=== PATIENT | female | born 1970 | race Caucasian/White ===

== ENCOUNTER → 2017-09-12 07:40 | Outpatient (CLI) | payer BC, SELFPAY ==
--- NOTE | 2017-09-12 07:47 | RAD_ITS ---
STUDY: X-RAY - CERVICAL SPINE REASON FOR EXAM: Female, 47 years old. Chronic neck pain. TECHNIQUE: Lateral flexion and extension view(s) of the cervical spine were obtained. COMPARISON: None FINDINGS: Normal anterior atlantoaxial articulation. Normal odontoid process. There is straightening of the normal cervical lordosis. Anterior spondylosis and disc space narrowing at the C6-C7 level. No abnormal translation is seen on the flexion-extension views. Normal visualized intervertebral neuroforamina. The soft tissue structures are unremarkable. RAD/Cerv Spine 2 or 3 Views IMPRESSION: Straightening of the normal cervical lordosis. Spondylosis and disc space narrowing at the C6-C7 level. Electronically Signed: López Thompson MD at 9:25 EDT Tel [phone], Service support ,
== END ==
PROVIDERS: Family Provider Internal Medicine; PCP Internal Medicine; Visit Provider Internal Medicine
DX: M54.12 Radiculopathy, cervical region (principal)
CPT/HCPCS: 72040

== ENCOUNTER → 2017-09-20 07:20 | Outpatient (CLI) | payer BC, SELFPAY ==
--- NOTE | 2017-09-20 07:29 | MRI_ITS ---
STUDY: MRI CERVICAL SPINE WITHOUT CONTRAST REASON FOR EXAM: Female, 47 years old. Neck pain that radiates into both shoulders, H/A's. Symptoms x 8 weeks. TECHNIQUE: Standardized fat and water weighted pulse sequences were obtained in the sagittal and axial planes. COMPARISON: None FINDINGS: Normal foramen magnum and brainstem-cervical cord junction. Normal craniovertebral junction. Normal anterior atlantoaxial articulation. Normal odontoid process. There is straightening of the normal cervical lordosis. C2-3: Normal endplates. Normal disc height, signal and morphology. Normal central canal and intervertebral neural foramina. C3-4: Normal endplates. Normal disc height, signal and morphology. Normal central canal and intervertebral neural foramina. C4-5: There is minimal disc osteophyte complex without significant central canal stenosis. There is left uncovertebral arthropathy with mild left foraminal stenosis. There is no right foraminal stenosis. C5-6: There is minimal disc osteophyte complex with minimal central canal stenosis. There is uncovertebral arthropathy with mild bilateral foraminal stenosis. C6-7: There is moderate disc space narrowing and endplate spondylosis. There is a mild disc osteophyte complex with minimal central canal stenosis. Uncovertebral arthropathy with moderate left foraminal stenosis. C7-T1: Normal endplates. Normal disc height, signal and morphology. Normal central canal and intervertebral neural foramina. Normal cervical cord. Normal visualized soft tissue structures. MRI/Spine Cervical (Routine) IMPRESSION: C6/C7: Moderate left foraminal stenosis. Electronically Signed: Angel Devlin MD at 14:42 EDT Tel , Service support ,
== END ==
PROVIDERS: Family Provider Internal Medicine; PCP Internal Medicine; Visit Provider Internal Medicine
DX: M54.12 Radiculopathy, cervical region (principal)
CPT/HCPCS: 72141

== ENCOUNTER → 2018-08-11 12:26 | Outpatient (CLI) | payer BC, SELFPAY ==
--- NOTE | 2018-08-11 12:30 | RAD_ITS ---
STUDY: X-RAY - RIGHT FOOT CLINICAL: Female, 48 years old. Pain TECHNIQUE: 3 view(s) of the foot. COMPARISON: None. FINDINGS: Normal talus, calcaneus, and tarsal bones. Normal visualized subtalar, talonavicular, calcaneocuboid, tarsal and tarsometatarsal articulations. Normal metatarsi. There is degenerative arthrosis of the metatarsophalangeal joint of the hallux . Normal tibial and fibular sesamoid bones. Normal interphalangeal joint of the great toe. Normal phalanges of the great toe. Normal second through fifth metatarsophalangeal joints. Normal interphalangeal joints and phalanges of the lesser toes. The soft tissue structures are unremarkable. RAD/Foot min 3 Views IMPRESSION: First metatarsophalangeal osteoarthritis. Electronically Signed: Geronimo Downey MD at 14:48 EDT Tel , Service support ,
== END ==
LOC: HPRAD 12:28
PROVIDERS: Family Provider Internal Medicine; PCP Internal Medicine; Referring Provider Internal Medicine; Visit Provider Internal Medicine
DX: R52 Pain, unspecified (principal)
CPT/HCPCS: 73630

== ENCOUNTER → 2018-12-22 15:07 | Outpatient (CLI) | payer BC, SELFPAY ==
--- NOTE | 2018-12-22 15:10 | RAD_ITS ---
STUDY: X-RAY - RIGHT HAND, ATTENTION INDEX FINGER REASON FOR EXAM: Female, 48 years old. Pain and swelling TECHNIQUE: 3 view(s) of the finger were obtained. COMPARISON: None. FINDINGS: Normal metacarpal head. Normal metacarpophalangeal joint. Normal proximal phalanx. Normal middle phalanx. Normal distal phalanx. Normal proximal interphalangeal joint. Normal distal interphalangeal joint. RAD/Finger(s) Min 2 Views IMPRESSION: Normal x-ray examination of the finger. Electronically Signed: Jacky Lamas MD at 15:23 EDT , Service support ,
== END ==
PROVIDERS: Family Provider Internal Medicine; PCP Internal Medicine; Referring Provider Nurse Practitioner Gerontology; Visit Provider Nurse Practitioner Gerontology
DX: S69.91XA Unspecified injury of right wrist, hand and finger(s), initial encounter (principal)
CPT/HCPCS: 73140

== ENCOUNTER 2019-01-07 12:27 | Day surgery (SDC) | payer BC, SELFPAY ==
[2019-01-06 08:55] VITALS: BMI 32.2
[2019-01-07] VITALS (7 sets, daily range): BP systolic 136–154; BP diastolic 83–100; PULSE 70–88; RESP 14–18; TEMP 36.5–37.5; O2SAT 94–100; BMI 33.0
--- NOTE | 2019-01-07 15:19 | PCM.DC.ORTHO ---
Discharge Diet: No Restrictions - may remove dressing and apply bandaids pod4, follow up in 2 weeks, call with concerns Discharge Activity: May Not Drive May shower in (days): 1 Ice area for (Minutes): 20 - Every hour while awake. Weight Bearing Status: Weight bearing as tolerated Keep extremity elevated above heart level: Operative Extremity Call your doctor if your incision/area has: Continuous Slow Oozing, Sudden Increased Bleeding, Increased Pain/ Swelling, Increased Redness, Foul Smelling Discharge Call your doctor if you observe: Fever of 101 or Higher, Coldness, Increased Pain, Numbness or Tingling, Change in Color, Calf discomfort Allergies/Adverse Reactions: Allergies erythromycin base Allergy (Intermediate, Verified 01/07/19 12:39) Swelling Penicillins Allergy (Intermediate, Verified 01/07/19 12:39) Swelling Medications to take at Discharge levothyroxine 50 mcg tablet 50 mcg PO DAILY #39 tab 01/06/19 omeprazole 20 mg capsule,delayed release 20 mg PO DAILY #30 cap 01/06/19 Hydrocodone Bitart/Apap 5-325 [[place] 5MG-325MG] 1 - 2 tablet PO Q6H PRN PRN 5 Days #20 tablet 01/07/19 The following prescriptions were given: Hydrocodone Bitart/Apap 5-325 [[place] 5MG-325MG] 1 - 2 tablet PO Q6H PRN PRN 5 Days #20 tablet PRN Reason: Pain Transmission Status: Sent to [facility] Primary Care Physician: Luna Stearns DO [Primary Care Provider] - Test Results: Test results from this visit will be discussed in further detail at your follow-up appointment, if applicable. Please Follow Up With: Sol Su DO - [phone]
--- NOTE | 2019-01-07 15:20 | OP.PCM_ITS ---
Report of Operation Date of Procedure: 01/07/19 Pre-Operative Diagnosis: right index bony mallet finger Post-Operative Diagnosis: same Surgery/Procedure Performed:: right dip close reduction percutaneous pinning Type of Anesthesia:: General Anesthesiologist: Jackson Peraza Estimated Blood Loss (mL): none Fluids Replaced: 400cc Description of Procedure: Preop note Next Patient is a 48-year-old female who was playing catch with her family and had a stove injury to her right index finger. Patient attempted to splint it and noted it was increasingly flexed and painful. She saw her primary care doctor who was referred her to Ortho and patient was seen yesterday. She was diagnosed with a bony mallet. 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 Risk benefits alternatives were discussed with patient. Risks include but not limited to blood loss, blood clot, infection, neurovascular, failure procedure, loss of life and loss of limb. Patient is worried like proceed with right index finger closed reduction percutaneous pinning. Operative note Patient seen and examined preop holding area. Right index finger was marked.. Patient brought to the operating placed supine on the operating table. Sign, anesthesia, antibiotics were administered. The right hand was prepped and draped usual sterile fashion. Fluoroscopy to ascertain the level of the bony mallet and her K wire placement. Timeout was performed. We then used a 5 4 K wire placed at [facility] in the through the DIP going retrograde across the DIP into the proximal phalanx. The sliver of bone from the bony mallet is slightly displaced but we are able to further reduce and it was less than 15% of the distal phalanx. Good reduction of our joint she was placed in hyperex tension the pin was buried as patient elected to proceed with a buried pin and will remove the K wire in the OR in 6 weeks time. Sterile dressings were applied patient tolerated procedure well no complication transferred recovery room in stable condition. Please note the multiple images in both AP and lateral fluoroscopy images to ascertain the reduction of the DIP joint were taken and maintained. Operative postop note Maintain dressing Follow-up in 2 weeks Patient is going to wear the splint when she is working and this was told to cover up the in the pins placement site as it may be tender if she gets bumped. Patient is aware. Hospital pharmacy has prescriptions as This note was generated with [employer] dictation software. It may contain incorrect words, spelling, and punctuation that were not noted in checking the note before signing.
[2019-01-07] MEDS: Cefazolin 2 GM in 0.9% Normal Saline 100 ML IV (15:25)
--- NOTE | 2019-01-07 15:30 | RAD_ITS ---
STUDY: X-RAY - RIGHT HAND, ATTENTION INDEX FINGER REASON FOR EXAM: Female, 48 years old. Fluoroscopic guided open reduction internal fixation TECHNIQUE: 3 view(s) of the finger were obtained. COMPARISON: December 22, 2018 FINDINGS: 4 views were obtained utilizing fluoroscopic guidance during surgical pinning of fracture of the base of the distal phalanx of the index finger. Fracture fragments are in anatomic alignment and position. 22 seconds of fluoroscopic time were utilized during the study RAD/Finger(s) Min 2 Views IMPRESSION: Fluoroscopic guided pinning of the fracture of the distal phalanx of the index finger Electronically Signed: Praveen Nesbitt MD at 16:17 EDT , Service support ,
--- NOTE | 2019-01-07 15:53 | PCM.HP.BLA ---
History and Physical I have re-examined the patient. There are no clinical changes since date of exam. Intake Vital Signs 01/06/19 Height 5 ft 01/06/19 Weight: 165 lb 01/06/19 Body Mass Index (BMI) 32.2 Intake Visit Reasons: Right Hand Is patient in pain?: Yes Pain scale (1-10): 4 Allergies erythromycin base Allergy (Intermediate, Verified 01/06/19 11:55) Swelling Penicillins Allergy (Intermediate, Verified 01/06/19 11:55) Swelling Medications levothyroxine 50 mcg tablet 50 mcg PO DAILY #39 tab 01/06/19 [History Confirmed 01/06/19] omeprazole 20 mg capsule,delayed release 20 mg PO DAILY #30 cap 01/06/19 [History Confirmed 01/06/19] PFSH Social History (Updated 01/06/19 @ 14:33 by Sol Su DO) Smoking Status: Current every day smoker HPI Right Hand: Surgical H&P: Yes Details: Parts of this documentation were recorded by a scribe, this documentation accurately reflects the service provided and the decisions made by me, Sol Su DO 01/06/19 0852. SHEYLA PARK is a 48 year old F NEW patient referred by Dr Stearns here today for right index finger injury on 12/13/18 when she was playing catch with her son. THe football hit the end of the ring finger and she had immediate pain, she has a mallet deformity today and has had no treatment, she does have an xray that Dr Stearns ordered. She can not extend the distal phalanx. Denies numbness, tingling or other associated symptoms. There is some mild redness noted at the dip joint. ROS Const Reports system reviewed and no additional complaints, except as docu Eyes Reports system reviewed and no additional complaints, except as docu ENT Reports system reviewed and no additional complaints, except as docu Card Reports system reviewed and no additional complaints, except as docu Resp Reports system reviewed and no additional complaints, except as docu GI Reports system reviewed and no additional complaints, except as docu Musc Reports as per HPI, Reports joint pain, Reports deformity Skin/Breast Reports system reviewed and no additional complaints, except as docu Neuro Yes system reviewed and no additional complaints, except as docu Psych Reports system reviewed and no additional complaints, except as docu Endo Reports system reviewed and no additional complaints, except as docu Assessment & Plan Problems 1. 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 X-rays were reviewed. There is vincenzo mallet finger noted. Educated on the anatomy of the finger and explained that she has a small fracture with mallet finger. Her treatment options are splinting without any removal for 6wks or buried pinning. Explained that as she is in a subacute stage of injury the pinning would need to be done tomorrow. Reviewed the functionality with a flexed finger and that there is no guarantee of surgery making the deformity change. Reviewed the pre-operative plans with the patient. Risks and benefits of the procedure were fully explained, including but not limited to infection, neurovascular injury, continued pain, arthritis, stiffness, need for further surgery, re-injury, DVT, PE, general risks of anesthesia, and loss of limb or life. The patient understands all the risks and does wish to proceed with written consent. Follow up two weeks post op or sooner if pain, swelling, numbness or associated symptoms, or concerns develop. All questions answered. Patient in agreement of plan. 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
[2019-01-07] MEDS: HYDROcodone Bitartrate/Apap 5/325 Tablet PO (17:46)
== END 2019-01-07 18:05 | disposition home or self-care (01) ==
LOC: SDC 12:28 → AC 12:30
PROVIDERS: Family Provider Internal Medicine; PCP Internal Medicine; Referring Provider Orthopaedic Surgery; Visit Provider Orthopaedic Surgery
PROC: (CPT 26776; principal; 2019-01-07 13:00)
DX: M20.011 Mallet finger of right finger(s) (principal); F17.200 Nicotine dependence, unspecified, uncomplicated
CPT/HCPCS: 26776; 73140; 76000; J7120; J2405

== ENCOUNTER 2019-03-04 13:18 | Day surgery (SDC) | payer BC, SELFPAY ==
[2019-01-23 08:21] VITALS: BMI 33.0
[2019-02-13 14:48] VITALS: BMI 33.0
[2019-03-04 13:39] VITALS: BP 128/88; PULSE 88; RESP 16; TEMP 37.1; O2SAT 100; BMI 31.7
[2019-03-04] MEDS: Cefazolin 2 GM in 0.9% Normal Saline 100 ML IV (13:41)
[2019-03-04] MEDS: Lactated Ringers 1,000 ML 100 ML IV (13:49)
--- NOTE | 2019-03-04 15:26 | PCM.HP.BLA ---
History and Physical I have re-examined the patient. There are no clinical changes since date of exam. Intake Vital Signs 02/13/19 Body Mass Index (BMI) 33.0 Intake Visit Reasons: PLAN FOR REMOVAL OF HARDWARE Allergies erythromycin base Allergy (Intermediate, Verified 01/07/19 12:39) Swelling Penicillins Allergy (Intermediate, Verified 01/07/19 12:39) Swelling PFSH Social History (Updated 02/13/19 @ 16:12 by ISABELL Diaz) Smoking Status: Current every day smoker HPI PLAN FOR REMOVAL OF HARDWARE: Surgical H&P: Yes Details: Parts of this documentation were recorded by a scribe, this documentation accurately reflects the service provided and the decisions made by Ko crawley PA 02/13/19 [id number]. SHEYLA PARK is a 48 year old F here today for 01/07/19 perc pinning right distal phalanx. She has good extension today. Denies numbness, tingling or other associated symptoms. She does get some discoloration at time. Patient states she has had nt any changes since her last visit and she is here today to sign consent for pin removal. DOS set for 03/04/19. ROS Const Reports system reviewed and no additional complaints, except as docu Eyes Reports system reviewed and no additional complaints, except as docu ENT Reports system reviewed and no additional complaints, except as docu Card Reports system reviewed and no additional complaints, except as docu Resp Reports system reviewed and no additional complaints, except as docu GI Reports system reviewed and no additional complaints, except as docu Musc Reports system reviewed and no additional complaints, except as docu, Reports as per HPI Skin/Breast Reports system reviewed and no additional complaints, except as docu Neuro Yes system reviewed and no additional complaints, except as docu Psych Reports system reviewed and no additional complaints, except as docu Endo Reports system reviewed and no additional complaints, except as docu Zoltan/Lymph Reports system reviewed and no additional complaints, except as docu Aller/Immun Reports system reviewed and no additional complaints, except as docu Ortho Exam Right Wrist/Hand Skin/Wound: No Swelling, No Ecchymosis Right Wrist: Yes ROM-Extension 0-60 and ROM-Flexion 0-80 Sensation: Radial: I, Ulnar: I, Median: I Left Wrist/Hand Skin/Wound: No Swelling, No Ecchymosis Assessment & Plan Problems 1. 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 Orthopedic aftercare Z47.89 Plan Patient is here today to sing surgery consent for pin removal of right dip of her right index finger. She has no concerns or complaints at this time and is ready to have the pin removed. Risks and benefits were discussed, all questions were answered, and consent was signed in office today. Antibacterial soap was given to be used the night before and the morning of her surgery. Patient will be contacted by surgery dept as well as anasthesia for pre-anasthesia testing. Follow up 2 weeks post op or sooner if pain, swelling, numbness or associated symptoms, or concerns develop. All questions answered. Patient in agreement of plan. Coding Level of Care Code Global Post Op Diagnoses Mallet deformity of right index finger M20.011 Orthopedic aftercare Z47.89
--- NOTE | 2019-03-04 15:29 | DCINST_ITS ---
Discharge Diet: No Restrictions - remove splint tomorrow. splint at night only for next 6 weeks, call with concerns, follow up in 2 weeks, do not submerge finger until incision healed Discharge Activity: May Not Drive May shower in (days): 1 Ice area for (Minutes): 20 - Every hour while awake. Weight Bearing Status: Weight bearing as tolerated Keep extremity elevated above heart level: Operative Extremity Call your doctor if your incision/area has: Continuous Slow Oozing, Sudden Increased Bleeding, Increased Pain/ Swelling, Increased Redness, Foul Smelling Discharge Call your doctor if you observe: Fever of 101 or Higher, Coldness, Increased Pain, Numbness or Tingling, Change in Color, Calf discomfort Allergies/Adverse Reactions: Allergies erythromycin base Allergy (Intermediate, Verified 03/04/19 13:30) Swelling Penicillins Allergy (Intermediate, Verified 03/04/19 13:30) Swelling Medications to take at Discharge levothyroxine 50 mcg tablet 50 mcg PO DAILY #39 tab 01/06/19 omeprazole 20 mg capsule,delayed release 20 mg PO DAILY #30 cap 01/06/19 Primary Care Physician: Luna Stearns DO [Primary Care Provider] - Test Results: Test results from this visit will be discussed in further detail at your follow- up appointment, if applicable. Please Follow Up With: Sol Su DO - [phone]
--- NOTE | 2019-03-04 15:29 | PCM.OPRPT ---
Report of Operation Date of Procedure: 03/04/19 Pre-Operative Diagnosis: right index finger dip pin Post-Operative Diagnosis: same Surgery/Procedure Performed:: jose alejandro right distal phalanx/middle pha Type of Anesthesia:: Local MAC Anesthesiologist: Jackson Peraza Fluids Replaced: 300 Description of Procedure: Preop note Patient is a 48-year-old female who had a chronic DIP bony mallet that was pin was placed 8 weeks ago. Patient pin was buried and is here today for removal of pin. Risk benefits alternatives were discussed with patient. Risks include but not limited to blood loss, blood clot, infection, neurovascular, failure procedure, loss of life and loss of limb patient is very like proceed with removal of hardware right index finger. Operative note Patient seen and examined preop preoperative holding area. Right hand was marked. Patient brought to the operating room placed supine on the operating table. Sign, anesthesia, antibiotics were warp picker. I then placed a local block to the right index finger. We then were able to palpate the the of the pin under sterile standard sterile sterile technique the pin was removed we then were able to visualize the tip of the pin to renew that he has had it out in its entirety. Sterile dressings were applied. Please note that we did place a turnicot for about 2 minutes during the case. Patient tired procedure well no comp occasions [facility] recovery room in stable condition. Postoperative note May use hand as tolerated Splint sent home to wear at night the next 6 weeks May remove dressing in 1 day Follow-up in 2 weeks Dragon disclaimer This note was generated with [employer] dictation software. It may contain incorrect words, spelling, and punctuation that were not noted in checking the note before signing.
[2019-03-04] MEDS: Bupivacaine Mpf 0.5% 30 ML VIAL (15:41)
[2019-03-04] MEDS: Mupirocin Ointment 22gm Tube 1 APPLIC (15:45)
[2019-03-04 15:57] VITALS: BP 109/76; BP 128/88; PULSE 86; RESP 16; TEMP 36.8; O2SAT 96
[2019-03-04 16:02] VITALS: BP 111/72; BP 128/88; PULSE 84; RESP 16; O2SAT 95
[2019-03-04 16:07] VITALS: BP 109/78; BP 128/88; PULSE 84; RESP 16; O2SAT 96
[2019-03-04 16:12] VITALS: BP 117/79; BP 128/88; PULSE 84; RESP 16; TEMP 36.4; O2SAT 97
[2019-03-04 16:32] VITALS: BP 128/88
== END 2019-03-04 16:42 | disposition home or self-care (01) ==
LOC: SDC 13:19 → AC 13:20
PROVIDERS: Family Provider Internal Medicine; PCP Internal Medicine; Referring Provider Orthopaedic Surgery; Visit Provider Orthopaedic Surgery
PROC: (CPT 20680; principal; 2019-03-04 13:35)
DX: M20.011 Mallet finger of right finger(s) (principal); Z47.89 Encounter for other orthopedic aftercare; Z88.0 Allergy status to penicillin; Z88.1 Allergy status to other antibiotic agents; F17.200 Nicotine dependence, unspecified, uncomplicated
CPT/HCPCS: 20680; J7120; J2405

== ENCOUNTER → 2019-03-17 08:13 | Outpatient (CLI) | payer BC, SELFPAY ==
[2019-03-17 08:05] VITALS: BMI 31.7
--- NOTE | 2019-03-17 08:14 | RAD_ITS ---
STUDY: X-RAY - RIGHT HAND, ATTENTION INDEX FINGER REASON FOR EXAM: Right index finger hardware removal. TECHNIQUE: 3 view(s) of the finger were obtained. COMPARISON: Radiographs 12/22/2018 and intraoperative images 01/07/2019. FINDINGS: Normal metacarpal head. Normal metacarpophalangeal joint. Normal proximal phalanx. There is osteopenia of the distal and middle phalanges. There is a fracture at the dorsal base of the distal phalanx without osseous bridging. Normal proximal interphalangeal joint. There is joint space narrowing of the distal interphalangeal joint similar to the prior study. There is soft tissue swelling. RAD/Finger(s) Min 2 Views IMPRESSION: Fracture at the dorsal base of the distal phalanx without osseous bridging. Arthrosis of the distal interphalangeal joint. Electronically Signed: Levi Croft MD at 10:38 EDT Tel , Service support ,
== END ==
LOC: HPRAD 08:14
PROVIDERS: Family Provider Internal Medicine; PCP Internal Medicine; Referring Provider Orthopaedic Surgery; Visit Provider Orthopaedic Surgery
DX: M20.011 Mallet finger of right finger(s) (principal); Z47.89 Encounter for other orthopedic aftercare
CPT/HCPCS: 73140

== ENCOUNTER → 2019-04-16 08:34 | Outpatient (CLI) | payer BC, SELFPAY ==
[2019-04-16 08:16] VITALS: BMI 31.7
--- NOTE | 2019-04-16 08:35 | RAD_ITS ---
STUDY: X-RAY - RIGHT HAND, ATTENTION SECOND FINGER REASON FOR EXAM: Female, 48 years old. Postoperative. TECHNIQUE: 3 view(s) of the finger were obtained. COMPARISON: 03/17/2019. FINDINGS: Normal metacarpal head. Normal metacarpophalangeal joint. Normal proximal phalanx. Normal middle phalanx. Normal distal phalanx. Normal proximal interphalangeal joint. There is narrowing of the distal interphalangeal joints with questionable subtle erosive changes. There is a well-corticated bony fragment along the dorsum of the distal interphalangeal joint consistent with old avulsion injury, stable. No acute fracture seen. No focal soft tissue swelling. RAD/Finger(s) Min 2 Views IMPRESSION: Questionable erosive osteoarthritis involving the distal interphalangeal joint with sequela of old avulsion injury along the dorsum of the DIP joint. No acute fracture or subluxation seen. Electronically Signed: Jody Henry MD at 2:41 EST , Service support ,
== END ==
PROVIDERS: Family Provider Internal Medicine; PCP Internal Medicine; Referring Provider Physician Assistant; Visit Provider Physician Assistant
DX: Z47.89 Encounter for other orthopedic aftercare (principal)
CPT/HCPCS: 73140

== ENCOUNTER → 2020-09-14 08:01 | Outpatient (CLI) | payer BC, SELFPAY ==
[2019-06-08 08:18] VITALS: BMI 31.7
--- NOTE | 2020-09-14 08:09 | US_ITS ---
STUDY: ABDOMINAL ULTRASOUND - RIGHT UPPER QUADRANT REASON FOR VISIT: Female, 50 years old abdominal pain. Chest pain for 2 weeks. TECHNIQUE: Ultrasound evaluation of the right upper quadrant was performed with real-time and static mays-scale imaging. TECHNICAL QUALITY: Adequate. COMPARISON: None. FINDINGS: Liver: The liver measures 14.2 cm. There is normal echogenicity of the liver. The bile ducts are within normal limits. There is hepatic color flow. The direction of portal flow is hepatopetal. There is no demonstrated mass lesion. Gallbladder: Normal distended gallbladder. The gallbladder wall measures 2.9 mm. There is a negative sonographic Irvin''s sign. There is no pericholecystic fluid. There are no gallstones. Common Bile Duct (C.B.D.): The common bile duct measures 2.7 mm. Pancreas: Normal size of the head, body and tail of the pancreas. There is normal echogenicity of the pancreas. There is no demonstrated pancreatic mass or cyst. Right Kidney: Normal size of the right kidney. The right kidney measures 9.6 cm. Normal renal cortex. The right cortex measures 1.1 cm. There is no demonstrated renal mass or cyst. There is no right hydronephrosis. US/Gallbladder IMPRESSION: Normal right upper quadrant ultrasound examination. Electronically Signed: Deangelo Hall DO at 22:40 EDT Tel [phone], Service support ,
--- NOTE | 2020-09-14 08:34 | ECHOD_ITS ---
Reason For Study: CHEST PAIN Procedure This was a 2D Doppler, Color Flow transthoracic echocardiogram. The exam was of adequate technical quality. Exam performed in department. Left Ventricle Normal LV size. Left ventricular systolic function is normal. The estimated ejection fraction is 65 %. No evidence for diastolic dysfunction. No regional wall motion abnormalities noted. Right Ventricle Normal RV size. Normal systolic function. Atria The left atrium is mildly enlarged. Normal right atrium. No doppler evidence for ASD. Bubble contrast study negative for right to left interatrial shunt. Mitral Valve There is no mitral annular calcification. Normal mitral valve. Mild (1+) mitral valve insufficiency. Tricuspid Valve Normal tricuspid valve. Mild to moderate (1-2+) tricuspid valve insufficiency. Right ventricular systolic pressure estimated to be 28 mmHg. Aortic Valve Trisinus/trileaflet aortic valve. Mild focal aortic valve calcification. Pulmonic Valve The pulmonic valve is not well visualized. Trivial pulmonic valve insufficiency. Great Vessels Normal sized aortic root. Pericardium/Pleural Trivial pericardial effusion. There are no echocardiographic indications of cardiac tamponade. Medication 22 gauge I.V. with prn adaptor inserted into left arm. Performed a rapid injection of agitated mix of 9 cc saline and 1cc air to assess for atrial septal defect. MMode/2D Measurements & Calculations LVIDd: 4.8 cm IVSd: 0.78 cm Ao root diam: 2.7 cm LVIDs: 3.4 cm LVPWd: 0.95 cm RVDd: 2.8 cm FS: 29.8 % LAV(MOD-bp): 39.7 ml LVAd ap4: 21.3 cm2 SV(MOD-sp4): 36.6 ml LAV(MOD-bp) Indexed: 23.7 ml/m2 EDV(MOD-sp4): 57.6 ml LAV(MOD-sp2): 39.0 ml EDV(sp4-el): 57.9 ml LAV(MOD-sp4): 35.1 ml LVAs ap4: 11.6 cm2 ESV(MOD-sp4): 20.9 ml ESV(sp4-el): 19.9 ml EF(MOD-sp4): 63.6 % EF(sp4-el): 65.6 % SV(sp4-el): 38.0 ml LA A4 area: 14.8 cm2 LA dimension(2D): 3.5 cm RA A4 area: 11.7 cm2 Time Measurements MV dec time: 0.20 sec Doppler Measurements & Calculations MV E max usama: 83.7 cm/sec Lat Peak E' Usama: 8.9 cm/sec Med Peak E' Usama: 9.4 cm/sec MV A max usama: 74.0 cm/sec E/E' lat: 9.4 E/E' med: 8.9 MV E/A: 1.1 Ao V2 max: 131.6 cm/sec LV V1 max: 100.5 cm/sec PA V2 max: 88.1 cm/sec Ao max P.9 mmHg LV V1 max P.0 mmHg TR max usama: 247.4 cm/sec TR max P.5 mmHg ECHO/Echo Complete Interpretation Summary Left ventricular systolic function is normal. The estimated ejection fraction is 65 %. The left atrium is mildly enlarged. Mild (1+) mitral valve insufficiency. Mild to moderate (1-2+) tricuspid valve insufficiency. Mild focal aortic valve calcification. Trivial pulmonic valve insufficiency. Trivial pericardial effusion. There are no echocardiographic indications of cardiac tamponade. Right ventricular systolic pressure estimated to be 28 mmHg. No evidence for diastolic dysfunction. Bubble contrast study negative for right to left interatrial shunt. Ordering Physician: Ana Dempsey Referring Physician: RADHA KLINE Performed By: Angelia Humphrey RDCS
== END ==
PROVIDERS: PCP Internal Medicine; Referring Provider Nurse Practitioner; Visit Provider Nurse Practitioner
DX: R07.9 Chest pain, unspecified (principal)
CPT/HCPCS: 76705; 93225; 93226; 93306; A4216

== ENCOUNTER → 2020-12-13 06:40 | Outpatient (CLI) | payer BC, SELFPAY ==
[2020-11-03 13:33] VITALS: BMI 30.3
--- NOTE | 2020-12-13 09:36 | STRESSREP ---
Stress Test Report Date: 12-13-2020 Procedure: Exercise tolerance test/imaging study Indications: Chest pain; SVT Consent: Per the patient Procedure: The patient exercised on a Jd protocol for 9 minutes and 16 seconds completing Stage III and 16 seconds of Stage IV achieving a peak heart rate of 164 bpm (96% predicted maximal heart rate) with a peak blood pressure 174/82 mmHg and a peak MET capacity of 10 METs. The baseline ECG demonstrated normal sinus rhythm. The peak exercise ECG demonstrated no obvious ECG changes. There was an isolated PVC during recovery. The functional capacity was considered good. There was no complaint of chest discomfort during exercise or recovery. The examination was discontinued secondary to dyspnea. Impression: 1. Technically adequate (percent predicted maximal heart rate greater than 85%) exercise tolerance test 2. Peak exercise ECG with no obvious ECG change 3. There was an isolated PVC during recovery 4. Nuclear images pending Myocardial perfusion imaging study: Technique: The patient was injected with 11.1 mCi of technetium 99m Cardiolite and subsequently rest SPECT Cardiolite nuclear imaging was obtained in the horizontal long, vertical long, and short axis views. The patient exercised on a Jd protocol for 9 minutes and 16 seconds completing Stage III and 16 seconds of Stage IV achieving a peak heart rate of 164 bpm (96% predicted maximal heart rate) with a peak blood pressure 174/82 mmHg and a peak MET capacity of 10 METs. The patient was injected with 33.0 mCi of technetium 99m Cardiolite and subsequently stress SPECT Cardiolite nuclear imaging was obtained in the horizontal long, vertical long, and short axis views. A gated Cardiolite study at peak stress was obtained. Interpretation: Rest and stress SPECT Cardiolite nuclear imaging status post realignment, normalization, and attenuation correction, demonstrates the appearance of relative uniform tracer uptake and myocardial perfusion appearing within normal limits. There are no obvious myocardial perfusion deficits on the resting or stress polar map images. There is end systolic thickening and brightening. The gated Cardiolite study demonstrates myocardial thickening and inward wall motion. The reported LVEF is 81%. Impression: 1. Rest and stress SPECT Cardiolite nuclear imaging demonstrate relative uniform tracer uptake and myocardial perfusion appearing within normal limits. 2. The gated Cardiolite study reports an LVEF of 81%. This note was generated with [employer] software. It may contain incorrect words, spelling, and punctuation that were not noted in checking the note before signing.
== END ==
LOC: CVS 06:41
PROVIDERS: PCP Internal Medicine; Referring Provider Internal Medicine Cardiovascular Disease; Visit Provider Internal Medicine Cardiovascular Disease
DX: R07.2 Precordial pain (principal); Z86.79 Personal history of other diseases of the circulatory system
CPT/HCPCS: 78452; 93017; A9500; A4216

== ENCOUNTER 2023-01-24 09:05 | Emergency (ER) | payer BC, SELFPAY ==
[2023-01-24 09:06] VITALS: BP 168/92; PULSE 86; RESP 16; TEMP 36.6; O2SAT 99; BMI 28.8
--- NOTE | 2023-01-24 09:43 | CT_ITS ---
STUDY: CT ABDOMEN AND PELVIS WITH CONTRAST - URINARY TRACT REASON FOR EXAM: Female, 52 years old. Vomiting, right sided abd pain RADIATION DOSAGE (If Supplied By Facility): CTDIvol = ( 12.59 ) mGy, DLP = ( 474.73 ) mGycm TECHNIQUE: IV 100mL Isovue-300 was administered. Transaxial images were obtained from the dome of the diaphragm to the symphysis pubis in the arterial, nephrographic and excretory phases. Multiplanar coronal and sagittal images were reformatted. Individualized Dose Optimization Techniques Were Used For This CT. COMPARISON: Prior study dated: Ultrasound dated September 14, 2020 FINDINGS: The visualized lung bases are unremarkable. The visualized portions of the heart are within normal limits. There is a too small to characterize low-attenuation focus within the right hepatic lobe which may reflect a cyst or hemangioma. There is a low-attenuation focus within the left hepatic lobe adjacent to the falciform ligament suggestive of focal fat. Normal gallbladder and extrahepatic biliary system. Normal spleen. Normal pancreas. Normal bilateral adrenal glands. Normal visualized stomach. There is a round calcified appearing 2.7 mm focus within the distal ileum (image 81 series 2). There are multiple colonic diverticula consistent with diverticulosis. The appendix is visualized and appears normal. Normal abdominal aorta. No retroperitoneal adenopathy. There are few peripheral calcifications of the common iliac arteries. Normal right kidney. Normal left kidney. The bladder is incompletely distended. There is minimal free fluid within the pelvis. There is a small umbilical hernia containing fat. There are diffuse degenerative changes of the visualized lumbar spine. CT/Abdomen/Pelvis W IV Cont ONLY IMPRESSION: No acute intra-abdominal process. Atherosclerosis. Colonic diverticulosis. Indeterminate 2.7 mm calcific-appearing round focus within the distal ileum may be secondary to ingested food containing calcifications. Electronically Signed: Katrina Mcfadden MD at 10:56 EDT ,
[2023-01-24] MEDS: 0.9% Normal Saline 1,000 ML 1000 ML IV (09:54)
[2023-01-24] MEDS: Ondansetron 4 MG/2 ML Vial IV (09:54)
[2023-01-24] MEDS: Morphine 4 MG/ML Syringe IV (09:54)
--- NOTE | 2023-01-24 10:07 | ED.VIS.GI ---
HPI HPI - GI History of Present Illness Chief Complaint: Abd Pain Informant: patient Narrative Narrative: Patient is a 52-year-old female with history of GERD, hypothyroid and SVT presenting abdominal pain, nausea and vomiting. She states she had abdominal pain that woke her up around 2 AM. She points to her diffuse upper abdominal region. She states it radiates to her back. She states it became more cramping in nature and then she started having nausea and vomiting. She tried to take Zofran but threw that up. She was able to fall back asleep for couple hours and then woke up again with the same pain and more vomiting. She notes she did have a normal bowel movement this morning. Denies any blood in her vomit or her stool. Denies any sick contacts. Notes that she had pizza and chicken wings for dinner last night around 7 PM. Is not had anything to eat since. Denies any fever or chills. Occasionally drinks alcohol does not had any in the past few days. Denies any chest pain, shortness of breath or difficulty breathing. Denies any urinary symptoms. No other complaints at this time. Surgical history includes tubal ligation and hysterectomy. [facility] Medical History Chest pain GERD (gastroesophageal reflux disease) History of supraventricular tachycardia Home Medications omeprazole 20 mg capsule,delayed release 20 mg PO DAILY #30 caps 01/06/19 [History Last Taken 03/04/19 08:00] ascorbic acid 7.5 mg-vit E 7.5 unit-biotin 1,250 mcg chewable tablet 2 tab PO DAILY 11/01/20 [History Last Taken Unknown] cholecalciferol (vitamin D3) 250 mcg (10,000 unit) tablet 250 mcg PO QWEEK 11/01/20 [History Last Taken Unknown] levothyroxine 50 mcg tablet 50 mcg PO .COMPLEX #39 tabs 11/01/20 [History Last Taken Unknown] lorazepam 0.5 mg tablet 0.5 mg PO DAILY PRN 11/01/20 [History Last Taken Unknown] mometasone 50 mcg/actuation nasal spray (Nasonex) 2 spray intranasal DAILY 11/01/20 [History Last Taken Unknown] cholecalciferol (vitamin D3) 50 mcg (2,000 unit) capsule 50 mcg PO QWEEK 11/03/20 [History Last Taken Unknown] dicyclomine 10 mg capsule 10 mg PO TID PRN abdominal pain #20 caps 01/24/23 [Rx Last Taken Unknown] levothyroxine 25 mcg tablet (Levo-T) 25 mcg PO DAILY 01/24/23 [History Last Taken Unknown] metoclopramide HCl 5 mg tablet (Reglan) 5 mg PO Q6H PRN nausea and vomiting #20 tabs 01/24/23 [Rx Last Taken Unknown] Allergy/AdvReac Type Severity Reaction Status Date / Time erythromycin base Allergy Intermediate Swelling Verified 01/24/23 09:06 Penicillins Allergy Intermediate Swelling Verified 01/24/23 09:06 Family History Mother Myocardial infarction, Onset Age: 40 Congestive heart failure Father Cancer Colon Hypertension Surgical History History of left heart catheterization (LHC) (~05/10/09) History of total hysterectomy Social History Smoking Status: Current every day smoker tobacco type: cigarettes alcohol intake: current details: occasional substance use type: does not use caffeine: No ROS ROS ED Constitutional Constitutional ED: Denies chills or fever(s) Cardiovascular Cardiovascular: Denies chest pain Respiratory/Chest Respiratory/Chest: Denies cough Gastrointestinal Gastrointestinal: Reports abdominal pain, nausea and vomiting; Denies constipation, diarrhea or melena Genitourinary Genitourinary ED: Denies dysuria or hematuria Musculoskeletal Musculoskeletal: Denies arthralgias, back pain or myalgias Integumentary Denies rash Neurologic Neurologic: Denies headache(s) EXAM Physical Exam Const Vital Signs: 01/24/23 09:06 Temperature 97.9 F Temperature Source Temporal Pulse Rate 86 Respiratory Rate 16 Blood Pressure 168/92 H Blood Pressure Mean 117 Pulse Ox 99 Oxygen Delivery Method Room Air Positive well nourished and well developed Constitutional Narrative: Uncomfortable appearing General Appearance ED: well developed; Negative for pallor HEENT Reports moist mucous membranes normocephalic and atraumatic Eyes General Eye ED: Negative for scleral icterus Neck supple Resp normal respiratory effort and clear to auscultation bilaterally Cardio regular rate, regular rhythm and no murmurs GI GI Narrative: Negative Irvin sign however patient is mildly tender throughout the abdomen with increased tenderness in the right lower quadrant suprapubic region. There is pain at McBurney's point. Nondistended. Auscultation: hypoactive bowel sounds Palpation: soft and tender RLQ, McBurney's point and suprapubic; Negative for guarding or rigid Back/Spine no CVA tenderness Neuro moves all extremities Sensorium / Orientation: alert Motor Exam: Negative for general weakness Psych mental status grossly normal and thought process normal Skin no wounds General Skin Exam: Negative for jaundice or pallor MDM MDM MDM Narrative Medical decision making narrative: Patient is evaluated sudden onset of abdominal pain, nausea and vomiting. Differential includes pancreatitis, cholecystitis, appendicitis and renal colic. Vital signs are significant only for mild hypertension. Patient is ordered IV Zofran, morphine and IV fluids. Will check labs, CT of the abdomen pelvis with IV contrast and reevaluate. Patient had improvement of symptoms but her cramping sensation comes back as well as her nausea. Blood work including CBC, CMP and lipase are largely normal. Urinalysis still pending at this point. CT of the abdomen and pelvis does not show any acute process however there is an indeterminate 2.7 mm calcified appearing round focus in the distal ileum which may be secondary to ingested food containing calcifications. Patient does not think she is taking any antacids and cannot recall what she could have eaten that would cause this. Is ordered Toradol and Reglan for further symptom control and will check a lactate. Abdominal exam is still benign and she is just now diffuse tenderness. Will trial Bentyl once her nausea is improved. Patient reevaluated and has significant improvement of symptoms. Her lactate is normal. Is tolerating p.o. Urinalysis not consistent with infection or other acute abnormality. While the cause of her symptoms is not clear at this time I do not think she has an acute surgical abnormality and can be discharged home. Is possible she has some type of gastroenteritis/food poisoning however that is little bit unusual since the patient does not have any sick contacts. This could be viral in nature as well. Lab Data Attestation: I reviewed the patient's lab results. Labs: Laboratory Results - last 24 hr 01/24/23 01/24/23 01/24/23 09:58 10:30 11:35 WBC 7.2 RBC 4.15 L Hgb 13.5 Hct 40.8 MCV 98.3 MCH 32.5 H MCHC 33.1 RDW Std Deviation 44.7 H RDW Coeff of Chris 12.3 Plt Count 296 MPV 10.3 Immature Gran % (Auto) 0.100 Neut % (Auto) 70.4 H Lymph % (Auto) 19.2 [place] % (Auto) 8.5 Eos % (Auto) 1.7 Baso % (Auto) 0.1 Absolute Neuts (auto) 5.1 Absolute Lymphs (auto) 1.38 Nucleated RBC % 0 Sodium 142 Potassium 4.0 Chloride 112 H Carbon Dioxide 24.0 Anion Gap 6 BUN 9 Creatinine 0.80 Estim Creat Clear Calc 59.09 Est GFR (MDRD) Af Amer 97 Est GFR (MDRD) Non-Af 80 BUN/Creatinine Ratio 11.3 Glucose 98 Lactic Acid 0.8 Calcium 9.0 Total Bilirubin 0.20 AST 8 L ALT 17 Alkaline Phosphatase 49 Total Protein 7.1 Albumin 3.6 Globulin 3.5 Albumin/Globulin Ratio 1.0 Lipase 24 Urine Color Yellow Urine Clarity Sl. Cloudy Urine pH 8.0 Ur Specific [place] 1.015 Urine Protein Negative Urine Glucose (UA) Normal Urine Ketones Negative Urine Occult Blood Negative Urine Nitrite Negative Urine Bilirubin Negative Urine Urobilinogen Normal Ur Leukocyte Esterase Negative Urine RBC 0 SEEN Urine WBC 0 SEEN Ur Squamous Epith Cells 0-5 SEEN Amorphous Sediment 2+ Urine Bacteria 0 SEEN Urine Mucus 0 SEEN Radiography Diagnostic Testing: Clinical Impression(s) from Imaging Studies Abdomen/Pelvis CT 01/24/23 09:43 IMPRESSION: No acute intra-abdominal process. Atherosclerosis. Colonic diverticulosis. Indeterminate 2.7 mm calcific-appearing round focus within the distal ileum may be secondary to ingested food containing calcifications. Electronically Signed: Katrina Mcfadden MD at 10:56 EDT , Discharge Plan Triage Chief Complaint: Abd Pain ED Provider: Kimberly Wilkinson Dx/Rx/DC Orders Clinical Impression: Nausea & vomiting, Abdominal pain of unknown etiology Instructions: ED Abdominal Pain Unkn Cause Fem, ED Vomiting (Adult) Prescriptions: New metoclopramide HCl [Reglan] 5 mg tablet 5 mg PO Q6H PRN (Reason: nausea and vomiting) Qty: 20 0RF dicyclomine 10 mg capsule 10 mg PO TID PRN (Reason: abdominal pain) Qty: 20 0RF No Action omeprazole 20 mg capsule,delayed release(DR/EC) 20 mg PO DAILY Qty: 30 levothyroxine 50 mcg tablet 50 mcg PO .COMPLEX Qty: 39 Rx Instructions: 50 mcg PO 1 tab daily except take 2 tabs on Sat. and Sun; cholecalciferol (vitamin D3) 50 mcg (2,000 unit) capsule 50 mcg PO QWEEK lorazepam 0.5 mg tablet 0.5 mg PO DAILY PRN mometasone [Nasonex] 50 mcg/actuation spray,non-aerosol 2 spray intranasal DAILY Rx Instructions: administer into each nostril ascorbic acid-vitamin E-biotin 7.5-7.5-1,250 mg-unit-mcg tablet,chewable 2 tab PO DAILY cholecalciferol (vitamin D3) 250 mcg (10,000 unit) tablet 250 mcg PO QWEEK levothyroxine [Levo-T] 25 mcg tablet 25 mcg PO DAILY Primary Care Provider: Luna Stearns Referrals: Luna Stearns DO [Primary Care Provider] - Activity Restrictions/Additional Instructions: Your lab work was largely normal today. Your CT did not show signs of appendicitis, acute cholecystitis (gallbladder attack), gallstones or other acute abnormality. The exact cause is not clear but at this time I think it is safe you to go home. Try to stick to a liquid diet for the next 24 hours until your symptoms have started to improve and then advance slowly with your diet moving onto bland foods. Return if you have a progression or worsening of your symptoms. Try to drink frequent small amounts of fluids to prevent dehydration Disposition Disposition: Home, Self Care
[2023-01-24 10:14] LABS: Absolute Lymphocyte Count 1.38 X10^3/uL (0.83-4.51); Absolute Neutrophil Count 5.1 X10^3/uL (2.0-7.7); Basophil# 0.01 X10^3/uL; Basophil% 0.1 % (0-1); Eosinophil# 0.12 X10^3/uL; Eosinophils% 1.7 % (0-5); Hematocrit 40.8 % (37-47); Hemoglobin 13.5 g/dL (12.0-15.0); Lymphocyte # 1.38 X10^3/ul (0.83-4.51); Lymphocyte % 19.2 % (19-41); Mean Corp Hgb Conc 33.1 g/dL (32-36); Mean Corpuscular Hgb 32.5 pg (27.0-32.0); Mean Corpuscular Volume 98.3 fL (81-99); Mean Platelet Vol. 10.3 fl (6.2-12.0); Monocyte# 0.61 X10^3/uL; Monocyte% 8.5 % (0-10); NRBC Flagged by Analyzer 0 % (0-5); Neutrophil # 5.05 X10^3/uL (2.7-7.7); Neutrophil % 70.4 % (47-70); Platelet Count 296 K/mm3 (150-450); RBC Distribution Width CV 12.3 % (11.6-14.6); RBC Distribution Width SD 44.7 fl (35.1-43.9); Red Blood Count 4.15 M/mm3 (4.2-5.4); White Blood Count 7.2 K/mm3 (4.4-11.0)
[2023-01-24 10:31] LABS: AST(SGOT) 8 U/L (15-37); Alanine Aminotransfer ALT/SGPT 17 U/L (13-56); Albumin, Serum 3.6 g/dL (3.2-5.0); Alkaline Phosphatase 49 U/L (45-117); Anion Gap 6 (5-15); BUN 9 mg/dL (7-18); BUN/Creat Ratio 11.3 RATIO (10-20); Chloride 112 mmol/L (98-107); EST Glomerular Filtration Rate 80 mL/min (>60); Est Glom Filt Rate - Afr Amer 97 mL/min (>60); Estimated Creatinine Clearance 59.09 ml/min; Globulin 3.5 g/dL (2.2-4.2); Glucose 98 mg/dL (74-106); Lipase 24 U/L (13-75); Protein, Total 7.1 g/dL (6.4-8.2); Sodium Level 142 mmol/L (136-145)
[2023-01-24 10:34] LABS: Bacteria 0 SEEN /hpf (None Seen); Mucous, Urine 0 SEEN /hpf (<or=2+); Red Blood Cells-Urine 0 SEEN /hpf (0-5); White Blood Cells 0 SEEN /hpf (0-5)
[2023-01-24 11:01] LABS: Color, Urine Yellow (Yellow); Glucose, Dipstick Normal (Normal); Ketone-Dipstick Negative (Negative); Leukocyte Esterase-Dipstick Negative /ul (Negative); Nitrite-Dipstick Negative (Negative); Occult Blood-Urine Negative /ul (Negative); Protein-Dipstick Negative (Negative); Specific Gravity, Urine 1.015 (1.002-1.030); Urine Bilirubin Dipstick Negative (Negative); Urine Clarity Sl. Cloudy (Clear); Urine Urobilinogen Normal (Normal)
[2023-01-24 11:21] LABS: Amorphous Sediment 2+; Squamous Epithelial Cells - UA 0-5 SEEN /hpf (5-10)
[2023-01-24] MEDS: Metoclopramide 10 MG/2 ML Vial 2.5 MG IV (11:33)
[2023-01-24] MEDS: Ketorolac 15 MG/ML Vial IV (11:34)
[2023-01-24 12:09] LABS: Lactic Acid 0.8 mmol/L (0.4-1.9)
[2023-01-24] MEDS: Dicyclomine 10 MG Capsule 20 MG PO (12:11)
[2023-01-24 13:05] VITALS: BP 127/90; PULSE 68
== END 2023-01-24 13:06 | disposition home or self-care (01) ==
PROVIDERS: Emergency Provider Emergency Medicine; PCP Internal Medicine; Visit Provider Emergency Medicine
DX: R10.813 Right lower quadrant abdominal tenderness (principal); F17.210 Nicotine dependence, cigarettes, uncomplicated; K21.9 Gastro-esophageal reflux disease without esophagitis; E03.9 Hypothyroidism, unspecified; Z79.890 Hormone replacement therapy; R11.2 Nausea with vomiting, unspecified
CPT/HCPCS: 74177; 80053; 81001; 83605; 83690; 85025; 96361; 96374; 96375; 99283; J7030; Q9967; J2405

== ENCOUNTER 2023-11-08 07:59 | Outpatient (CLI) | payer BC, SELFPAY ==
--- NOTE | 2023-11-08 08:03 | CT_ITS ---
EXAM: CT CHEST, LUNG CANCER SCREENING WITHOUT INTRAVENOUS CONTRAST CLINICAL INDICATION: Smoker TECHNIQUE: Helically acquired images were obtained of the chest without intravenous contrast using low dose (LDCT) lung cancer screening protocol. This CT exam was performed using one or more of the following dose reduction techniques: automated exposure control, adjustment of the mA and/or kV according to patient size, and/or use of iterative reconstruction technique. COMPARISON: No relevant prior studies available. FINDINGS: LUNGS AND PLEURAL SPACES: Unremarkable. No mass. No consolidation or edema. No pleural effusion or thickening. No pneumothorax. HEART: Unremarkable. Heart size is normal. No pericardial effusion. No significant coronary artery calcifications. MEDIASTINUM: Unremarkable. No mediastinal or hilar adenopathy. Esophagus is unremarkable. No hiatal hernia. THYROID: Unremarkable. No thyroid lesions. BONES/JOINTS: Unremarkable. No suspicious lytic or blastic abnormality. VASCULATURE: Unremarkable. Thoracic aorta is non-dilated. LYMPH NODES: Unremarkable. No enlarged lymph nodes. CT/Low Dose CT Lung Screening IMPRESSION: Normal chest CT. Lung-RADS score: 1 - Negative. Recommend continued annual screening with a low-dose CT (LDCT) in 12 months. Electronically Signed: Luis Tesfaye MD at 0:14 EDT ,
== END 2023-11-08 23:59 | disposition home or self-care (01) ==
LOC: CT 08:01
PROVIDERS: PCP Internal Medicine; Referring Provider Internal Medicine; Visit Provider Internal Medicine
DX: F17.210 Nicotine dependence, cigarettes, uncomplicated (principal)
CPT/HCPCS: 71271